=== PATIENT | female | born 1965 | race Caucasian/White ===

== ENCOUNTER 2020-11-26 12:50 | Inpatient (IN) | payer OTHER ==
[~2020-11-26] VITALS: Ht 167.6 cm; Wt 136.1 kg
[~2020-11-26 12:50] MED LIST: BENTYL 20MG TAB20 MG PO; DIFLUCAN150 MG PO; NORCO 5-325 TA1 EACH PO; ZOFRAN ODT 4 MG4 MG PO
[2020-11-26 15:45] LABS: HEMOGLOBIN 15.9 gm/dl (12.3-15.3); RED BLOOD COUNT 5.39 M/UL (4.00-5.10); WHITE BLOOD COUNT 4.1 K/UL (4.5-11.0)
[2020-11-27 05:18] LABS: HEMOGLOBIN 15.2 gm/dl (12.3-15.3); RED BLOOD COUNT 5.19 M/UL (4.00-5.10)
[2020-11-27 05:23] LABS: BUN/CREATININE RATIO 19 (0-10)
[2020-11-27 05:45] LABS: WHITE BLOOD COUNT 2.5 K/UL (4.5-11.0)
[2020-11-27] MEDS ORDERED: ASPIRIN EC81 MG PO (12:22)
[2020-11-27] MEDS ORDERED: CLONIDINE HCL0.2 MG PO (12:23)
[2020-11-27] MEDS ORDERED: VISTARIL50 MG PO (12:24)
[2020-11-27] MEDS ORDERED: ISOSORBIDE MONO60 MG PO (12:30)
[2020-11-27] MEDS ORDERED: ASPIRIN EC325 MG PO (12:46)
[2020-11-27] MEDS ORDERED: BUSPIRONE HCL15 MG PO (12:46)
[2020-11-27] MEDS ORDERED: DRISDOL1250 MCG PO (12:48)
[2020-11-27] MEDS ORDERED: METOPROLOL TART50 MG PO (12:49)
[2020-11-27] MEDS ORDERED: ZOLOFT50 MG PO (12:50)
[2020-11-27] MEDS ORDERED: OMEPRAZOLE40 MG PO (12:50)
[2020-11-27 12:59] LABS: HEMOGLOBIN 15.3 gm/dl (12.3-15.3); RED BLOOD COUNT 5.19 M/UL (4.00-5.10)
[2020-11-27 13:03] LABS: WHITE BLOOD COUNT 3.7 K/UL (4.5-11.0)
[2020-11-28 06:33] LABS: HEMOGLOBIN 14.6 gm/dl (12.3-15.3); RED BLOOD COUNT 5.05 M/UL (4.00-5.10)
[2020-11-28 06:39] LABS: WHITE BLOOD COUNT 4.7 K/UL (4.5-11.0)
[2020-11-28 08:32] LABS: BUN/CREATININE RATIO 23 (0-10)
[2020-11-29 07:52] LABS: HEMOGLOBIN 13.9 gm/dl (12.3-15.3); RED BLOOD COUNT 4.81 M/UL (4.00-5.10)
[2020-11-29 08:30] LABS: BUN/CREATININE RATIO 25 (0-10)
[2020-11-29] MEDS ORDERED: OMNICEF 300 MG300 MG PO (12:11)
[2020-11-29] MEDS ORDERED: PROVENTIL HFA6.7 GM INH (12:21)
[2020-11-29] MEDS ORDERED: DECADRON6 MG PO (13:10)
[2020-11-29 13:11] LABS: COMPLEMENT C3, SERUM 150 mg/dL (82-167); COMPLEMENT C4, SERUM 30 mg/dL (12-38)
== END 2020-11-29 15:35 | disposition home or self-care (01) | DRG 177 ==
LOC: ER1 12:50 → M/S 16:25 → CDU 16:25 → M/S 11-27 00:05
PROVIDERS: Internal Medicine Infectious Disease; Preventive Medicine Occupational Medicine; ADMIT Internal Medicine
PROC: XW033E5 Introduction of Remdesivir Anti-infective into Peripheral Vein, Percutaneous Approach, New Technology Group 5 (ICD-10-PCS; principal; 2020-11-26)
PROC: 8E0ZXY6 Isolation (ICD-10-PCS; 2020-11-29)
DX: U07.1 COVID-19 (principal); J12.82 Pneumonia due to coronavirus disease 2019; J96.01 Acute respiratory failure with hypoxia; N39.0 Urinary tract infection, site not specified; D72.819 Decreased white blood cell count, unspecified; M32.9 Systemic lupus erythematosus, unspecified; I10 Essential (primary) hypertension; B96.20 Unspecified Escherichia coli [E. coli] as the cause of diseases classified elsewhere; Z79.82 Long term (current) use of aspirin; Z98.890 Other specified postprocedural states; Z90.49 Acquired absence of other specified parts of digestive tract; Z88.0 Allergy status to penicillin; Z88.2 Allergy status to sulfonamides; Z91.041 Radiographic dye allergy status
CPT/HCPCS: 36415; 36600; 71045; 80048; 80053; 81001; 82550; 82553; 82803; 83036; 83605; 83690; 83735; 83874; 83880; 84439; 84443; 84484; 85025; 85027; 85379; 85652; 86140; 86160; 87086; 87186; 94640; 94664; 94760; 96374; 99285; J0456; J0696; J1100; J1650; J7030; U0002

== ENCOUNTER → 2021-12-27 | Outpatient (CLI) | payer OTHER ==
[~2021-12-27] MED LIST changes: +ASPIRIN EC325 MG PO; +ASPIRIN EC81 MG PO; +BUSPIRONE HCL15 MG PO; +CLONIDINE HCL0.2 MG PO; +DECADRON6 MG PO; +DRISDOL1250 MCG PO; +ISOSORBIDE MONO60 MG PO; +METOPROLOL TART50 MG PO; +OMEPRAZOLE40 MG PO; +OMNICEF 300 MG300 MG PO; +PROVENTIL HFA6.7 GM INH; +VISTARIL50 MG PO; +ZOLOFT50 MG PO
== END ==
LOC: HEART 5 15:11
DX: R06.02 Shortness of breath (principal)
CPT/HCPCS: 94060; 94729